=== PATIENT | female | born 1950 | race Two or more races ===

== ENCOUNTER → 2016-08-28 | Outpatient (CLI) | payer MEDICARE, OTHER ==
--- NOTE | 2016-08-29 00:08 | HKNOTE ---
DATE OF SERVICE: 08/28/2016 MAIN COMPLAINT: Pain in the right hip. HISTORY OF MAIN COMPLAINT: The patient is a 66-year-old female who complains of pain in her right h ip which has been present for about a year. She has not seen any orthopedic surgeons for this probl em. Her general practitioner, Jovani Manrique, referred her for x-rays of her hip and pelvis and diagn osed hip arthritis. The patient is referred to me by a friend and relative. 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 The left leg is shorter than the right b y about 2 cm. She wears a shoe lift on the left side. In addition to this, she has scoliosis of th e lumbar spine which also alters leg lengths. She also has a long history of pain in the lower back with radiation down her legs. She had an MRI scan of the lumbar spine. This was ordered by Dr. Jerri ferrer, and he has given her multiple lumbar epidural cortisone injections. Last epidural was given on 07/05 and has had a significant effect. She currently has no pain in her lower back or radiation d own her legs. PRESENT COMPLAINTS: The pain in the right hip is localized to the groin and radiates down the anter ior thigh to just above the knee. Pain is aggravated by walking, weightbearing and stair climbing. She does get rest pain and night pain. She takes Advil, which seems to help a great deal. The cor tisone from the epidural injection also gave her great improvement. She has no numbness or tingling in her legs. On a level surface, currently she cannot walk more than 100 feet without stopping. S he does not use a walking aid. She limps all the time. She has a 2 cm shoe lift on the left side. She cannot clip her toenails or tie her shoelaces on the right side. PAST ORTHOPEDIC HISTORY: PREVIOUS ORTHOPEDIC OPERATIONS: None. PRIOR CORTISONE INTAKE: Multiple lumbar epidural injections. ALCOHOL INTAKE: None. OTHER JOINT PROBLEMS: None. BLOOD TESTS FOR ARTHRITIS: None. PRIOR INJURIES TO HIPS OR KNEES: None. WORK STATUS: Housewife. PAST MEDICAL HISTORY: 1. Hypertension. 2. Diabetes. 3. Seizure disorder. PRIOR SURGICAL HISTORY: Breast cancer surgery for the left breast, 2002. ALLERGIES: NONE. MEDICATIONS: 1. Metformin 1000 mg twice a day. 2. Hydrochlorothiazide 25 mg a day. 3. Benicar 20 mg once a day. 4. Levetiracetam 500 mg twice a day for seizure disorder. FAMILY HISTORY: Father at 55 of diabetes. Mother age 88, alive and well. SYSTEMS REVIEW: History of breast cancer, hypertension, diabetes, otherwise negative. Polio as a c hild. HABITS: The patient does not smoke or drink alcoholic beverages. DELINQUENT TAX COLLECTOR: Dr. Jovani Manrique, [facility], [id number] [address] (phone number ). PHYSICAL EXAMINATION: GENERAL: The patient is a remarkably youthful 66-year-old female. She comes in with her , oksana buenrostro is a [place] assistant county engineer. VITAL SIGNS: Height 5 feet 5 inches. Weight 168 pounds. Blood pressure 145/80, temperature 98.0. GAIT: The patient has an antalgic gait. She walks without a walking aid. She has a shoe lift in h er left shoe. RIGHT HIP: Flexion 100 degrees, external rotation 30, internal rotation 0, abduction 30, adduction 0. There is 4+ pain in the right groin at all limits of motion. No tenderness anywhere around the hip. LEFT HIP: A full range of motion without pain. LEFT LEG: Smaller in diameter than the right leg but not significantly. Remarkably good muscle str ength in all the muscle groups of the left lower extremity. SPINE: Levoscoliosis. NEUROLOGIC: Motor examination reveals no muscle deficit in the lower extremities. Deep tendon refle xes in the lower extremities: Right knee jerk +, left knee jerk +, right ankle jerk +, left ankle j erk +. Straight leg raising is negative bilaterally at 80 degrees. Lasegue and VARGAS tests are neg ative. RIGHT KNEE: The right knee shows normal alignment. Active and passive extension is 0 degrees. Activ e and passive flexion is 135 degrees. The medial and lateral collateral ligaments and cruciate ligam ents are intact. Yanni test is negative. There is no effusion, tenderness, scarring, crepitus, or cysts. The patella tracks normally. There is no tenderness on the articular surface of the patella o r in the patellar groove. The Q angle is normal. LEFT KNEE: The left knee shows normal alignment. Active and passive extension is 0 degrees. Active and passive flexion is 135 degrees. The medial and lateral collateral ligaments and cruciate ligamen ts are intact. Yanni test is negative. There is no effusion, tenderness, scarring, crepitus, or cy sts. The patella tracks normally. There is no tenderness on the articular surface of the patella or in the patellar groove. The Q angle is normal. IMAGING: Plain x-rays of her right hip brought with her were reviewed (hard film). These show exce edingly severe degenerative osteoarthritis of the right hip with complete loss of the joint space an d a very huge osteophyte inferomedially. Intraosseous cyst and subchondral sclerosis. An MRI scan of her lumbar spine obtained on 06/18/2016 is reported by ____ as showing (see repor t): 1. "L3-L4, a 4 to 5 mm right-sided disk bulge . . . mild to moderate spinal canal stenosis and mild right foraminal stenosis. 2. L4-L5, moderate right-sided loss of disk height. A 9 mm left greater than right disk bulge with overlapping 3 mm retrolisthesis and moderate ligamentum flavum hypertrophy and facet arthropathy co ntribute to moderate left foraminal stenosis, severe spinal stenosis and mild right foraminal stenos is." (Seek full report in the chart). DIAGNOSES: 1. Exceedingly severe degenerative osteoarthritis of the right hip. 2. Polio hypoplasia of left leg. 3. 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 4. Hypertension. 5. Diabetes type 2. 6. Seizure disorder (last episode 2 years ago). 7. Breast cancer surgery, 2002. MANAGEMENT: The patient is advised that she most certainly will need to have a right hip replacemen t at some time in the near future. The surgery and some of the major possible complications were di scussed with her in a fair amount of detail. The patient was given my manual titled "Arthritis of the Hip Joint" which contains information kyara rning the various alternatives of treatment. It includes various forms of conservative treatment, in cluding the use of nonsteroidal anti-inflammatory medications and their dangers. Various surgical al ternatives are discussed. The technique of total hip replacement is discussed in detail, including p ossible complications. Included also is a section on the possible complications of blood transfusion , a section on postoperative precautions, and an exercise program to follow at home after total hip replacement. The long-term care of a total hip replacement implant is also covered in detail. The pa ashlijessica was instructed to read this manual in its entirety since it is, in and of itself, a form of in formed consent. After reading this manual, the patient will make a list of further questions that ma y not have been covered adequately. The patient was further advised that this manual, although exhau stive in nature, is only intended to supplement and complement a one-on-one discussion with me. Issues of anterior hip replacement were discussed with them in a fair amount of detail as well as pa in management, hospital course and course when she leaves the hospital. The patient will be able to go home because her is at home all day. She is going to see a imcu specialist at [facility] next week. If he feels that there is anything urgent about her spine that takes precedence over the hip surgery, then she should have the spine surgery first. FINAL DIAGNOSES: 1. Exceedingly severe degenerative osteoarthritis of the right hip. 2. Polio hypoplasia of left leg. 3. 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 4. Hypertension. 5. Diabetes type 2. 6. Seizure disorder (last episode 2 years ago). 7. Breast cancer surgery, 2002. The patient will tentatively schedule her hip surgery, which she is anxious to get on with, and will change the date if any spine surgery is indicated. Dictated By: LAVON ARAUJO/ROBERT Conf#: [id number] DID#: [id number]
== END | disposition home or self-care (01) ==
LOC: HKI 15:34
DX: M16.11 Unilateral primary osteoarthritis, right hip (principal); M21.70 Unequal limb length (acquired), unspecified site; M41.86 Other forms of scoliosis, lumbar region; I10 Essential (primary) hypertension; E11.9 Type 2 diabetes mellitus without complications; Q72.892 Other reduction defects of left lower limb; G40.909 Epilepsy, unspecified, not intractable, without status epilepticus; Z85.3 Personal history of malignant neoplasm of breast
CPT/HCPCS: G0463

== ENCOUNTER → 2016-09-12 | Outpatient (CLI) | payer MEDICARE, OTHER ==
[~2016-09-12] MED LIST: HYDR25TA6 PO; LEVE500T34 PO; METF-731 PO; OLME20TA20 PO
--- NOTE | 2016-09-12 14:39 | RADRPT ---
PROCEDURE: XR Right hip and pelvis. CLINICAL INDICATION: Right hip pain. Pelvic pain. TECHNIQUE: Two views. Frontal pelvis and lateral right hip. COMPARISON: No prior studies are available for comparison. FINDINGS: There is no fracture or dislocation. The soft tissues are normal. There are degenerative changes of the right hip with joint space narrowing, osteophytes, mild deform ity. The left hip is grossly normal. There is no lytic or blastic lesion. The upper pelvis is not completely included on the image. IMPRESSION: 1. Moderate to severe degenerative changes of the right hip. 2. Grossly normal appearance of the left hip and pelvis. RPTAT: QQ .Dusty Roberson MD, MD Date Time Electronically viewed and signed by .Dusty Roberson MD, MD on 09/12/2016 14:39 .R/
--- NOTE | 2016-09-13 08:09 | HKNOTE ---
DATE OF SERVICE: 09/12/2016 The patient comes for preoperative evaluation. She is scheduled to have a right total hip replaceme nt on 08/14/2017. She is to undergo surgery by Dr. Carlo Goncalves. She has not given any blood for a utotransfusion. She understands the risks associated with using hospital blood. She is agreeable t o using hospital blood if needed. Numerous questions by herself and her were asked and answ ered. Dictated By: LAVON ARAUJO/NTS Conf#: [id number] DID#: [id number]
== END | disposition home or self-care (01) ==
LOC: HKI 13:34
DX: Z01.818 Encounter for other preprocedural examination (principal)
CPT/HCPCS: 73502; G0463

== ENCOUNTER 2016-09-13 05:28 | Inpatient (IN) | payer MEDICARE, OTHER ==
--- NOTE | 2016-09-11 19:02 | HP ---
DATE OF ADMISSION: 09/13/[address] Son: Thank you for asking me to see Mrs. Morse in consultation. HISTORY OF PRESENT ILLNESS: She is a 66-year-old woman who is entering the hospital for total hip replacement. The patient is having lots and lots of difficulty walking. She has trouble transferring, getting in and out of cars and up and down from chairs, etc. PAST MEDICAL HISTORY: Positive for diabetes control by current blood tests is not too good. She takes Metformin 1000 mg twice a day and that is all for diabetes. She has arthritis, breast cancer history remotely and hypertension. she has a hx of seizures, none for a long time on small dose of keppra daily PAST SURGICAL HISTORY: Includes reduction of the breast with lumpectomy. SOCIAL HISTORY AND FAMILY HISTORY: The patient was born in the [facility]. She is with 2 grown children. REVIEW OF SYSTEMS: GENERAL: No headaches, no eye difficulties. Specifically, no diabetic difficulties, no trouble with her hearing. She is not short of breath, not coughing. No cardiac history and specifically no cardiac irregularity or heart attack. She has no chest pain. GASTROINTESTINAL AND GENITOURINARY: Asymptomatic. NEUROLOGIC: There is no numbness or tingling. There is no evidence of renal disease. The patient is not currently smoking. PAST SURGICAL HISTORY: Includes only the breast surgery. PHYSICAL EXAMINATION: GENERAL: Reveals a pleasant big lady in no acute distress. HEENT: No signs of trauma. Eyes appear to be normal to confrontation. Extraocular muscle movements are intact. EARS AND THROAT: Unremarkable. NECK: Supple. LUNGS: Clear to percussion and auscultation. HEART: Tones are regular, no murmurs. ABDOMEN: Soft and obese. EXTREMITIES: No clubbing, cyanosis, edema. Good peripheral pulses. NEUROLOGICAL: Unremarkable. She has pain on range of motion of left hip. IMAGING: Chest x-ray is clear. Electrocardiogram probably normal variant with a small Q in the anterior septal leads. No old records to compare. LABORATORY: Blood sugar is 188, otherwise laboratory tests are fine. IMPRESSION: 1. Preoperative status, left total hip replacement. 2. Diabetes. 3. Hypertension. 4. seizure history, remote DISCUSSION: The patient is okay to proceed with surgery. I have asked her to hold off on Glucophage prior to surgery, which may raise her blood sugar, but we can check her morning sugar and use insulin in the hospital as needed. It should not be a hindrance to surgery. I would probably use nonglucose containing fluids if her blood sugars are greater than 150. Thank you for asking me to see her at this time. Dictated By: JED COLEMAN MD SR/NTS Conf#: [id number] DID#: [id number] MTDD
[2016-09-12 09:13] VITALS: Ht 162.6 cm; Wt 75.4 kg
[2016-09-13] VITALS (26 sets, daily range): BP systolic 94–126; BP diastolic 52–88; PULSE 56–76; RESP 10–19
[~2016-09-13] VITALS: Ht 162.6 cm; Wt 75.4 kg
[2016-09-13] MEDS ORDERED: SOD CHLORIDE 0.9% IVPB ONE (06:00)
[2016-09-13] MEDS ORDERED: TRANEXAMIC ACID IVPB ONE (06:00)
[2016-09-13] MEDS ORDERED: VANCOMYCIN 1 GM (PMX) 250 ML IVPB ONE (06:00)
[2016-09-13] MEDS ORDERED: ONDANSETRON 4 MG INJ IV ONE (06:00)
[2016-09-13] MEDS ORDERED: LACTATED RINGER'S 1,000 ML IV* SCH (06:00)
[2016-09-13] MEDS ORDERED: ACETAMINOPHEN 1000MG/100ML IV 100 ML IVPB ONE (06:00)
[2016-09-13] MEDS ORDERED: oxyCODONE (CR) 10 MG TAB [oxyCONTIN] PO ONE (06:00)
[2016-09-13] MEDS ORDERED: CELECOXIB 200 MG CAP PO ONE (06:00)
[2016-09-13] MEDS ORDERED: LANSOPRAZOLE 30 MG CAP PO ONE (06:00)
[2016-09-13] MEDS ORDERED: DEXAMETHASONE 4 MG/ML 1 ML INJ IV ONE (06:00)
[2016-09-13] MEDS ORDERED: METF-731 PO (06:10)
[2016-09-13] MEDS ORDERED: HYDR25TA6 PO (06:10)
[2016-09-13] MEDS ORDERED: OLME20TA20 PO (06:10)
[2016-09-13] MEDS ORDERED: LEVE500T34 PO (06:10)
[2016-09-13] MEDS ORDERED: HETASTARCH 6% NACL 500 ML BAG ONE (07:00)
[2016-09-13] MEDS ORDERED: GELATIN SIZE 100 SPONGE ONE (07:28)
[2016-09-13] MEDS ORDERED: HEPARIN 1000 UNITS/ML 10 ML INJ ONE (07:28)
[2016-09-13] MEDS ORDERED: POLYMYXIN B 500000 UNIT INJ ONE (07:28)
[2016-09-13] MEDS ORDERED: VANCOMYCIN 1 GM INJ ONE (07:28)
[2016-09-13] MEDS ORDERED: ROPIVACAINE 0.2% 100ML BAG ONE (07:28)
[2016-09-13] MEDS ORDERED: MIDAZOLAM 1 MG/ML 2 ML INJ ONE (07:45)
[2016-09-13] MEDS ORDERED: HIP PAIN COCKTAIL VANCO INJ SCH ×7 (08:00)
[2016-09-13] MEDS ORDERED: TRANEXAMIC ACID IRR SCH ×2 (08:00)
[2016-09-13] MEDS ORDERED: SOD CHLORIDE 0.9% IRR SCH ×2 (08:00)
[2016-09-13] MEDS ORDERED: PROPOFOL 100 ML ONE (08:02)
[2016-09-13] MEDS ORDERED: ROCURONIUM 50 MG INJ ONE ×2 (08:02→09:36)
[2016-09-13] MEDS ORDERED: ROPIVACAINE 0.5 % 30 ML VIAL ONE (08:27)
[2016-09-13] MEDS ORDERED: PHENYLephrine (100 MCG/ML) 5ML SYG ONE ×4 (08:37→11:10)
[2016-09-13] MEDS ORDERED: BACITRACIN 50000 UNITS INJ IRR ONE (09:25)
[2016-09-13] MEDS ORDERED: ALBUMIN HUMAN 5% 250 ML ONE (10:22)
[2016-09-13] MEDS ORDERED: ONDANSETRON 4 MG INJ ONE (10:23)
[2016-09-13] MEDS ORDERED: METOCLOPRAMIDE 10 MG INJ ONE (10:23)
[2016-09-13] MEDS ORDERED: KETOROLAC 30 MG INJ ONE (10:23)
[2016-09-13] MEDS ORDERED: DEXAMETHASONE 4 MG/ML 1 ML INJ ONE (10:23)
[2016-09-13] MEDS ORDERED: GLYCOPYRROLATE 1 MG INJ ONE (11:31)
[2016-09-13] MEDS ORDERED: NEOSTIGMINE 3 MG/3 ML SYRINGE ONE (11:31)
--- NOTE | 2016-09-13 11:56 | RADRPT ---
PROCEDURE: Right hip x-rays series CLINICAL INDICATION: Arthroplasty TECHNIQUE: 4 images obtained intraoperatively during a hip arthroplasty procedure. COMPARISON: None available FINDINGS: 4 images were obtained intraoperatively for localization during a hip hemiarthroplasty. 24 seconds of fluoroscopy time was utilized by the physician Dr. Son during the procedure in progress. IMPRESSION: 4 images obtained and 24 seconds of fluoroscopy time used intraoperatively for localization during a hip hemiarthroplasty. .Jf Smith MD, MD Date Time Electronically viewed and signed by .Jf Smith MD, on 09/13/2016 11:55 .B/
[2016-09-13] MEDS ORDERED: oxyCODONE 5 MG TAB PO PRN ×3 (12:00)
[2016-09-13] MEDS ORDERED: NA PHOSPHATE/BIPHOS 133 ML ENEMA PR PRN (12:00)
[2016-09-13] MEDS ORDERED: BETHANECHOL 25 MG TAB PO PRN (12:00)
[2016-09-13] MEDS ORDERED: EPHEDrine SULFATE 50 MG/5 ML SYG IV PRN (12:00)
[2016-09-13] MEDS ORDERED: ZOLPIDEM 5 MG TAB PO PRN (12:00)
[2016-09-13] MEDS ORDERED: NACL 0.9% 3 ML SYG IV SCH (12:00)
[2016-09-13] MEDS ORDERED: ALBUMIN HUMAN 5% 250 ML IV PRN (12:00)
[2016-09-13] MEDS ORDERED: BISACODYL 10 MG SUPP PR PRN (12:00)
[2016-09-13] MEDS ORDERED: DOCUSATE SODIUM 100 MG CAP PO ONE (12:00)
[2016-09-13] MEDS ORDERED: MAGNESIUM HYDROXIDE 30ML CUP PO PRN (12:00)
[2016-09-13] MEDS ORDERED: NALOXONE (0.4 MG/ML) INJ IV PRN (12:00)
[2016-09-13] MEDS ORDERED: METOCLOPRAMIDE 10 MG INJ IV PRN (12:00)
[2016-09-13] MEDS ORDERED: DIPHENHYDRAMINE 50 MG INJ IV PRN (12:00)
[2016-09-13] MEDS ORDERED: DIPHENHYDRAMINE 50 MG INJ IM PRN (12:00)
[2016-09-13] MEDS ORDERED: MEPERIDINE 10 MG/ML 30 ML PCA IV PRN (12:00)
[2016-09-13] MEDS ORDERED: LABETALOL HCL 20MG INJ IV PRN (12:00)
[2016-09-13] MEDS ORDERED: ONDANSETRON 4 MG INJ IV PRN (12:00)
[2016-09-13] MEDS ORDERED: hydrALAzine 20 MG INJ IV PRN (12:00)
[2016-09-13] MEDS ORDERED: morphine (1 MG/ML) 10ML SYRINGE IV PRN ×3 (12:00)
[2016-09-13] MEDS ORDERED: ASPIRIN (EC) 325 MG TAB PO ONE (12:00)
[2016-09-13] MEDS ORDERED: HYDROmorphONE 0.2 MG/ML PCA IV PRN (12:00)
[2016-09-13] MEDS ORDERED: SENNA/DOCUSATE NA (8.6MG/50MG) TAB PO PRN (12:00)
[2016-09-13] MEDS ORDERED: HYDROmorphONE (0.2 MG/ML) 10ML SYG IV PRN ×3 (12:00)
[2016-09-13 12:32] LABS: ADD UMIC YES; URINE BILIRUBIN (Dip) NEGATIVE (NEGATIVE); URINE BLOOD (Dip) 2+ (NEGATIVE); URINE COLOR LT. YELLOW (YELLOW); URINE GLUCOSE (Dip) NEGATIVE (NEGATIVE); URINE KETONES (Dip) NEGATIVE (NEGATIVE); URINE LEUKOCYTE ESTERASE (Dip) NEGATIVE (NEGATIVE); URINE NITRITE (Dip) NEGATIVE (NEGATIVE); URINE TOTAL PROTEIN (Dip) NEGATIVE (NEGATIVE); URINE UROBILINOGEN (Dip) 0.2 E.U./dL (0.1-1.0)
[2016-09-13] MEDS: CEFAZOLIN 1 GM/50 ML (PMX) 50 ML IVPB SCH ×2 (12:38→20:34)
[2016-09-13] MEDS: ONDANSETRON 4 MG INJ IV SCH ×3 (12:39→23:37)
[2016-09-13] MEDS: ACETAMINOPHEN 1000MG/100ML IV 100 ML IVPB SCH ×2 (12:39→20:06)
[2016-09-13 12:40] LABS: BACTERIA,URINE FEW
--- NOTE | 2016-09-13 13:07 | RADRPT ---
PROCEDURE: XR Right Hip CLINICAL INDICATION: Postop surgery TECHNIQUE: A single AP view of the right hip was submitted. COMPARISON: Comparison to the intraoperative images done earlier on the same date FINDINGS: Osseous structures: A total right hip replacement appears to be well seated. The osseous elements o therwise appear intact. Joint spaces: The prosthetic joint spaces are well maintained. Soft tissues: There is subcutaneous and interarticular air and a drain has been placed along with robert perficial lucita. A Pierre catheter is evident. IMPRESSION: 1. Well seated total right hip replacement with a drain and postoperative changes evident. 2. Superficial lucita been placed laterally. Physician Nicole Date Time Electronically viewed and signed by Physician Nicole on 09/13/2016 13:07 /
[2016-09-13] MEDS: SOD CHLORIDE 0.9% 1,000 ML IV SCH ×2 (14:18→21:16)
[2016-09-13] MEDS ORDERED: BACITRACIN 50000 UNITS INJ ONE (15:00)
--- NOTE | 2016-09-13 16:27 | OPR ---
DATE OF OPERATION: 09/13/2016 PREOPERATIVE DIAGNOSIS: Severe degenerative osteoarthritis of the right hip. POSTOPERATIVE DIAGNOSIS: Severe degenerative osteoarthritis of the right hip. SURGEON: Mervin Son MD CHANNEL LAYER: Joaquim Penny. OPERATION PERFORMED: Right total hip replacement by the anterior route. Computer-assisted surgery using the Bareed[employer] digital imaging computer. FINDINGS AT SURGERY: The patient was found to have exceedingly severe degenerative osteoarthritis o f the right hip. The femoral head had no normal-appearing articular cartilage. The patient's bone quality was satisfactory for a female of her age. JUSTIFICATION FOR SURGERY: Patient has endstage osteoarthritis of the right hip. There can be no s cientific expectation that any further conservative measures would give this patient any relief from her incapacitating pain. DESCRIPTION OF PROCEDURE: The patient was given intravenous antibiotics approximately 1 hour prior to surgery. An epidural anesthetic was initiated in the preanesthesia area. The patient was then m christy to the operating room and transferred to a Hollywood table. General anesthesia was induced with int ubation and full muscle paralysis. Plain and digital x-rays were obtained of the pelvis and the ope rative hip and stored in the computer. Measurements were made on the operative hip to determine the degree of leg length and offset. The intent was to use the operative hip as the basic template for restoring the geometry of the operative hip (i.e., the opposite hip was not used as the template). On the pelvic x-ray, the correct orientation of the pelvis for surgery was determined. Note that Payoff computer was used throughout for making all leg length and angular measurements. The operative thigh, leg and lower abdomen were prepared and draped in the usual sterile fashion. A n oblique incision was made over the lateral aspect of the right thigh. Incision commenced 3 cm dis hansel and 3 cm posterior to the anterior superior iliac spine. The total length of the incision was a pproximately 80 mm long. The incision was deepened through the subcutaneous fat to expose the fasci a over the tensor muscle. The fascia was opened to expose the muscle. Bleeding points were cauteri zed throughout by diathermic coagulation. The fascia over the tensor was incised by blunt and digit al resection. The interval was found between the tensor muscle and the anterior capsule as well as the rectus muscle. Superior and inferior cobra retractors were now placed outside the capsule to ex pose the anterior surface of the capsule. A third cobra retractor was placed over the brim of the p brown. The reflected head of rectus was first elevated with a Antunez elevator. The anterior capsule was incised along the length of the intratrochanteric line with the hip externa lly rotated. The incision extended around the proximal femur to the lesser trochanter. The incisio n was now extended vertically to the edge of the acetabulum. The capsular incision was extended kimberly ng the anteromedial extent of the anterior rim of the acetabulum. A cobra retractor was placed insi de the capsule medially. The lateral aspect of the anterior capsule was incised and a second cobra retractor was placed inside the capsule around the superior femoral neck. Three turns of traction were placed on the operative leg. The femoral head was now freed from the a cetabulum using a skid. The remaining superior and anterior capsule was incised and the femoral nec k was then incised. A corkscrew was inserted into the femoral head from the anterior aspect of the femoral head. Using the corkscrew as a handle and using a skid, the hip was now completely dislocat ed. The hip was reduced. An osteotomy of the femoral neck was made at the location determined by preope rative templating. The femoral head was now removed. By suitable retraction, the acetabulum was exposed. Soft tissues around the folia removed. The marcus tabulum was enlarged and deepened to 49 mm. The last acetabular reamings were inserted under fluoro scopic control and the correct orientation of the socket and if the reaming were determined by the M.Setek computer and direct x-ray visualization. The acetabular component was now installed with an orientation of 32 degrees of abduction and 18 degrees of anteversion. The [employer] Software was used for making these measurements. The proximal femur was now exposed by hyperextending and adducting the hip joint. A retractor was p laced posterior to the femoral neck so as to retract the proximal femur laterally. A hook was then placed around the proximal femur deep to the tensor muscle and as proximal as possible. The hook wa s attached to the table anton and the femur was elevated as high as we could go without force being a pplied to the femur. The superior and proximal femoral capsules were now incised. The cobra retractor was placed behind the posterior rim of the acetabulum. A Steinmann pin was driven into the pelvis superior to the marcus tabulum to retract the soft tissues. A third cobra was placed over the rim of the acetabulum and th e fourth cobra was placed along the medial aspect of the acetabulum. This allowed further mobilizat ion of the proximal femur. A canal finder was used to find the canal. The proximal femur is now br oached starting with the smallest broach and progressively increasing until we felt we could go no f urther. At this point, the size 9 broach was left in place and the hip was reduced. X-rays were ta sydni and these x-rays showed that we could broach up 1 more size. The hip was reduced with the short est femoral head and neck assembly and measurements were made to determine what neck lengths and off set changes were still needed. The hip was dislocated. The next size broach (size 10) was now installed. This broach was found to be completely stable. The hip was reduced using the +5 mm femoral head and neck assembly and the 1 0 broach. Measurements indicated that the leg lengths had been increased by 1 mm. The offset was 2 .5 mm. This was felt to be an appropriate combination. The trial components were placed and the re tractor was placed anterior to the acetabulum and the hip was hyperextended using the Hollywood table unt il the spar touched the floor. This showed that the hip was totally stable in the anterior aspect o f the socket. As trial components were removed, the permanent plastic acetabular component was installed. This wa s followed by installing the permanent femoral component. The table was now returned to a neutral p osition and the hip was dislocated. The wound was frequently irrigated throughout the procedure wit h normal saline containing antibiotics using pulsatile lavage. The permanent femoral component was installed, it fit perfectly and appeared to be completely stable . The permanent femoral head was installed and the hip was reduced. Superficial and deep Hemovac drains were placed. Soft tissues around the hip were injected with a m ixture of Naropin, Toradol, morphine and clonidine for pain management. The deep tissues were now c losed using interrupted Vicryl. The subcutaneous tissues were closed using a Quill type stitch. Th e skin was closed using lucita. The usual sterile dressings were applied and an abduction pillow was placed between the patient's le gs before transferring her to a [facility]. The patient returned to the recovery room in stable conditi on. There were no problems or complications throughout this operation as far as is known. Although multiple x-rays were taken in the operating room and saved, the permanent x-ray record was obtained in the recovery room to be sure that the hip did not dislocate in transfer. IMPLANT COMPONENT INFORMATION: Femoral component: Corail KA10. Acetabular component: 50 mm [place] with Gription. Femoral head size: 32 mm. Femoral neck size: +5 mm. Implant retail solar advisor: [employer] [place], [place]. Leg length: Increased 1 mm. Offset: Lateralized 2.5 mm. Reinfusion of blood was approximately 400 mL and 200 mL were returned. Dictated By: MERVIN ARAUJO/ROBERT Conf#: [id number] DID#: [id number]
--- NOTE | 2016-09-13 17:16 | PN ---
Date/Time of Note Date/Time of Note DATE: 09/13/16 TIME: 17:13 Assessment/Plan VTE Prophylaxis VTE Prophylaxis Intervention: ambulation, SCD's Lines/Catheters IV Catheter Type (from Nrsg): Peripheral IV Urinary Cath still in place: Yes Subjective 24 Hr Interval Summary Free Text/Dictation doing very well post thr, already up and stable am glucose ok, will follow, all preadmit orders continued vs ok lungs clear no edema Exam/Review of Systems Vital Signs Vitals Vital Signs Date Time Temp Pulse Resp B/P Pulse Ox O2 Delivery O2 Flow Rate FiO2 09/13/16 16:00 61 18 110/72 98 Nasal Cannula 2.0 09/13/16 14:01 98.0 Results Results 24 hrs Laboratory Tests Test 09/13/16 05:55 09/13/16 12:20 Bedside Glucose 130 Urine Bacteria FEW Urine Bilirubin NEGATIVE Urine Clarity CLEAR Urine Color LT. YELLOW Urine Epithelial Cells FEW Urine Glucose NEGATIVE Urine Hemoglobin 2+ H Urine Ketones NEGATIVE Urine Leukocyte Esterase NEGATIVE Urine Microscopic RBC 5-10 Urine Microscopic WBC 2-5 Urine Nitrite NEGATIVE Urine Specific [place] 1.015 Urine Total Protein NEGATIVE Urine Urobilinogen 0.2 E.U./dL Urine pH 5.5 Medications Medications Current Medications Sodium Chloride (NS) 1,000 ml @ 80 mls/hr [id number] IV Last administered on 09/13t 14:18; Admin Dose 80 MLS/HR; Start 09/13/16 at 11:58 Hydromorphone HCl (Dilaudid VERIFIER) Q4PCA PRN IV SEVERE PAIN 8-10; Start at 12:00; Stop 09/14/16 at 09:00 Meperidine HCl (Demerol VERIFIER) Q4PCA PRN IV SEVERE PAIN 8-10; Start 09/13/16 at 12:00; Stop 09/14/16 at 09:00 Oxycodone HCl (Roxicodone) 20 mg Q3H PRN PO PAIN LEVEL 8-10; Start 09/13/16 at 12:00 Oxycodone HCl (Roxicodone) 10 mg Q3H PRN PO PAIN LEVEL 4-7; Start 09/13/16 at 12:00 Oxycodone HCl 5 mg 5 mg Q3H PRN PO PAIN LEVEL 1-3; Start 09/13/16 at 12:00 Acetaminophen (Ofirmev 1000mg/ 100ml Iv) 100 ml @ 400 mls/hr Q8H IVPB Last administered on 09/13/16 12:39; Admin Dose 400 MLS/HR; Start 09/13/16 at 12:00 ; Stop 09/15/16 at 04:14 Zolpidem Tartrate (Ambien) 5 mg HS PRN PO INSOMNIA; Start 09/13/16 at 12:00 Ondansetron HCl 4 mg 4 mg Q6H IV Last administered on 09/13/16 12:39; Admin Dose 4 MG; Start 09/13/16 at 12:00; Stop 09/14/16 at 06:01 Cefazolin Sodium (Ancef 1 Gm/50 ml (Pmx)) 50 ml @ 100 mls/hr Q8H IVPB Last administered on 09/13/16 12:38; Admin Dose 100 MLS/HR; Start 09/13/16 at 12:00 ; Stop 09/14/16 at 04:29 Aspirin (Ecotrin) 325 mg BID PO ; Start 09/14/16 at 09:00 Celecoxib (Celebrex) 200 mg BID PO ; Start 09/14/16 at 09:00 Dexamethasone (Decadron) 4 mg DAILY@07 IV ; Start 09/14/16 at 07:00; Stop at 06:59 Pantoprazole (Protonix Tab) 40 mg DAILY@06 PO ; Start 09/14/16 at 06:00 Docusate Sodium/ Ferrous Fumarate (Nicol-Sequels) 1 tab BID PO ; Start 09/14/16 at 09:00 Docusate Sodium (Colace) 200 mg BID PO ; Start 09/14/16 at 09:00; Stop 09/16/16 at 21:01 Simethicone (Mylicon) 80 mg TID PRN PO DISTENSION/GAS/BLOATING; Start 09/13/16 at 12:00 Senna/Docusate Sodium (Senokot-S) 2 tab BID PRN PO CONSTIPATION; Start at 12:00 Magnesium Hydroxide (Milk Of Mag) 30 ml HS PRN PO CONSTIPATION; Start 09/13/16 at 12:00 Bisacodyl (Dulcolax Supp) 10 mg DAILY PRN [place] CONSTIPATION; Start 09/13/16 at 12 :00 Sodium Biphosphate/ Sodium Phosphate (Fleet Enema) 133 ml DAILY PRN [place] CONSTIPATION; Start 09/13/16 at 12:00 Diphenhydramine HCl (Benadryl) 25 mg Q4H PRN IM ITCHING OR RASH; Start at 12:00 Ketorolac Tromethamine (Toradol) 30 mg DAILY@06 PRN INJ ADMINSTER BY SURGEON ONLY; Start 09/14/16 at 06:00; Stop 09/18/16 at 05:59 Bupivacaine HCl/ Epinephrine Bitart (Marcaine 0.25%/ Epi (Sdv) 30 ml) 20 ml DAILY@06 PRN INJ ADMINSTER BY SURGEON ONLY; Start 09/14/16 at 06:00; Stop 09/18 at 05:59 Naloxone HCl (Narcan) 0.2 mg Q2M PRN IV DECREASED REPIRATORY RATE; Start at 12:00 Levetiracetam (Keppra) 500 mg QHS PO ; Start 09/13/16 at 21:00 JED COLEMAN MD Sep 13, 2016 17:16
[2016-09-13] MEDS: LEVETIRACETAM 500 MG TAB PO SCH (20:34)
[2016-09-14] MEDS: ACETAMINOPHEN 1000MG/100ML IV 100 ML IVPB SCH ×3 (04:23→20:24)
[2016-09-14] MEDS: CEFAZOLIN 1 GM/50 ML (PMX) 50 ML IVPB SCH (04:48)
[2016-09-14 05:31] LABS: BASOPHILS % 0.3 % (0.0-2.0); EOSINOPHILS % 0.6 % (0.0-7.0); HEMATOCRIT 22.1 % (37.0-47.0); HEMOGLOBIN 7.4 g/dl (12.0-16.0); LYMPHOCYTES # 1.5 10^3/ul (0.8-2.9); LYMPHOCYTES % 21.1 % (15.0-51.0); MEAN CORPUSCULAR HEMOGLOBIN 28.1 pg (29.0-33.0); MEAN CORPUSCULAR HGB CONC 33.4 g/dl (32.0-37.0); MEAN CORPUSCULAR VOLUME 84.2 fl (82.0-101.0); MEAN PLATELET VOLUME 8.4 fl (7.4-10.4); MONOCYTE # 0.6 10^3/ul (0.3-0.9); MONOCYTES % 8.4 % (0.0-11.0); NEUTROPHILS % 69.6 % (39.0-77.0); PLATELET COUNT 215 10^3/UL (140-440); RED BLOOD COUNT 2.62 10^6/ul (4.20-5.40); UNCORRECTED WBC 7.1 10^3/ul (4.8-10.8); WHITE BLOOD COUNT 7.1 10^3/ul (4.8-10.8)
[2016-09-14] MEDS: ONDANSETRON 4 MG INJ IV SCH (05:46)
[2016-09-14 05:57] LABS: CONDITION 1; LH ANALYZER COMMENTS 1
[2016-09-14] MEDS ORDERED: KETOROLAC 30 MG INJ INJ PRN (06:00)
[2016-09-14] MEDS ORDERED: BUPIVACAINE 0.25%/EPI (SDV) 30 ML INJ INJ PRN (06:00)
[2016-09-14] MEDS: DEXAMETHASONE 4 MG/ML 1 ML INJ IV SCH (06:11)
[2016-09-14] MEDS: PANTOPRAZOLE (EC) 40 MG TAB PO SCH (06:12)
[2016-09-14 07:19] VITALS: BP 90/50; RESP 19
[2016-09-14] MEDS: DOCUSATE SODIUM 100 MG CAP PO SCH ×2 (09:10→20:23)
[2016-09-14] MEDS: ASPIRIN (EC) 325 MG TAB PO SCH ×2 (09:10→20:22)
[2016-09-14] MEDS: FERROUS FUMARATE (SR) TAB PO SCH ×2 (09:10→20:22)
[2016-09-14] MEDS: CELECOXIB 200 MG CAP PO SCH ×2 (09:10→20:24)
--- NOTE | 2016-09-14 12:19 | PN ---
Date/Time of Note Date/Time of Note DATE: 09/14/16 TIME: 12:15 Assessment/Plan Lines/Catheters IV Catheter Type (from Nrsg): Peripheral IV Pierre in Place (from Nrsg): Yes Assessment/Plan Assessment/Plan Stable but low H&H, POD #1 s/p right anterior LISSA -drain removed today -pain meds -pain cocktail given -ASA/SCDs for DVT prophylaxis -H&H low, will likely need transfusion -will speak with Dr. Goncalves about giving blood products. Patient is okay with receiving transfusion -OOB with PT -dressing changed -check AM labs Subjective 24 Hr Interval Summary Doing well. No acute overnight events. Denies significant pain. H&H low but asymptomatic. VSS, afebrile. Exam/Review of Systems Vital Signs Vitals Vital Signs Date Time Temp Pulse Resp B/P Pulse Ox O2 Delivery O2 Flow Rate FiO2 09/14/16 07:19 97.6 65 19 90/50 99 09/13/16 20:15 2.0 09/13/16 16:00 Nasal Cannula Intake and Output 09/13/16 09/13/16 09/14/16 15:00 23:00 07:00 Intake Total 2115.1 ml 770 ml 1190 ml Output Total 600 ml 670 ml 1520 ml Balance 1515.1 ml 100 ml -330 ml Exam Free Text/Dictation Hemovac: 240cc Dressing dry Incision clean, dry, and intact without redness or drainage 5/5 Quadriceps, Tibialis Anterior, EHL, Gastroc, Soleus, Peroneals Normal sensation Palpable DT/PT, CR <2 sec No distal edema Results Result Diagram: 09/14/16 0443 CINDY LAWS PA-C Sep 14, 2016 12:18
--- NOTE | 2016-09-14 13:31 | PN ---
Date/Time of Note Date/Time of Note DATE: 09/14/16 TIME: 13:23 Assessment/Plan VTE Prophylaxis VTE Prophylaxis Intervention: other Lines/Catheters IV Catheter Type (from [facility]): Saline Lock Urinary Cath still in place: Yes Reason Cath still needed: urinary retention Assessment/Plan Problems: (1) Seizure disorder Status: Chronic Comment: No evidence of seizure activity and she is maintained on her antiepileptic medication (2) Diabetes mellitus type 2 in nonobese Status: Chronic Comment: I will do Accu-Cheks and place her on her metformin although it looks like she is doing okay. Close follow-up (3) Essential hypertension Status: Chronic Comment: She is off of her antihypertensive medications at the moment she was on an H2 receptor uriah at half dose along with a thiazide diuretic at standard dose (4) Osteoarthritis (arthritis due to wear and tear of joints) Status: Chronic Comment: Postoperative and stable Qualifiers: Osteoarthritis location: hip Osteoarthritis type: primary Laterality: right Qualified Code: M16.11 - Primary osteoarthritis of right hip (5) Aftercare following right hip joint replacement surgery Status: Acute Comment: She is doing work with physical therapy and progressing nicely (6) Postoperative anemia due to acute blood loss Status: Acute Comment: This is occurred abruptly shown from preop hemoglobin of 12 down into the low sevens. She would prefer not to receive blood but I feel that actually this is appropriate especially given the lower blood pressures. Subjective 24 Hr Interval Summary Free Text/Dictation Vibrant and cheerful young lady sitting in bed. Constitutional: no complaints Respiratory: no complaints Cardiovascular: no complaints Gastrointestinal: nausea (Scant nausea now resolved), no complaints Genitourinary: no complaints Musculoskeletal: bone/joint pain (Pain at right hip), no complaints Skin: no complaints Neurologic: no complaints Exam/Review of Systems Vital Signs Vitals Vital Signs Date Time Temp Pulse Resp B/P Pulse Ox O2 Delivery O2 Flow Rate FiO2 09/14/16 07:19 97.6 65 19 90/50 99 09/13/16 20:15 2.0 09/13/16 16:00 Nasal Cannula Intake and Output 09/13/16 09/13/16 09/14/16 15:00 23:00 07:00 Intake Total 2115.1 ml 770 ml 1190 ml Output Total 600 ml 670 ml 1520 ml Balance 1515.1 ml 100 ml -330 ml Exam Constitutional: alert, oriented Neck: non-tender, supple Respiratory: clear to auscultation, normal air movement Cardiovascular: nl pulses, regular rate and rhythm Results Result Diagram: 09/14/16 0443 Results 24 hrs Laboratory Tests Test 09/14/16 04:43 09/14/16 08:17 Basophils # 0.0 Basophils % 0.3 Blood Morphology Comment Eosinophils # 0.0 Eosinophils % 0.6 Hematocrit 22.1 L Hemoglobin 7.4 L Lymphocytes # 1.5 Lymphocytes % 21.1 Mean Corpuscular Hemoglobin 28.1 L Mean Corpuscular Hemoglobin Concent 33.4 Mean Corpuscular Volume 84.2 Mean Platelet Volume 8.4 Monocytes # 0.6 Monocytes % 8.4 Neutrophils # 5.0 Neutrophils % 69.6 Nucleated Red Blood Cells # 0.0 Nucleated Red Blood Cells % 0.0 Platelet Count 215 Red Blood Count 2.62 L Red Cell Distribution Width 14.0 White Blood Count 7.1 Bedside Glucose 111 Medications Medications Current Medications Sodium Chloride (NS) 1,000 ml @ 80 mls/hr [id number] IV Last administered on 09/13 21:16; Admin Dose 80 MLS/HR; Start 09/13/16 at 11:58 Oxycodone HCl (Roxicodone) 20 mg Q3H PRN PO PAIN LEVEL 8-10; Start 09/13/16 at 12:00 Oxycodone HCl (Roxicodone) 10 mg Q3H PRN PO PAIN LEVEL 4-7; Start 09/13/16 at 12:00 Oxycodone HCl 5 mg 5 mg Q3H PRN PO PAIN LEVEL 1-3; Start 09/13/16 at 12:00 Acetaminophen (Ofirmev 1000mg/ 100ml Iv) 100 ml @ 400 mls/hr Q8H IVPB Last administered on 09/14/16 12:00; Admin Dose 400 MLS/HR; Start 09/13/16 at 12:00 ; Stop 09/15/16 at 04:14 Zolpidem Tartrate (Ambien) 5 mg HS PRN PO INSOMNIA; Start 09/13/16 at 12:00 Aspirin (Ecotrin) 325 mg BID PO Last administered on 09/14/16 09:10; Admin Dose 325 MG; Start 09/14/16 at 09:00 Celecoxib (Celebrex) 200 mg BID PO Last administered on 09/14/16 09:10; Admin Dose 200 MG; Start 09/14/16 at 09:00 Dexamethasone (Decadron) 4 mg DAILY@07 IV Last administered on 09/14/16 06:11 ; Admin Dose 4 MG; Start 09/14/16 at 07:00; Stop 09/17/16 at 06:59 Pantoprazole (Protonix Tab) 40 mg DAILY@06 PO Last administered on 09/14/16 06 :12; Admin Dose 40 MG; Start 09/14/16 at 06:00 Docusate Sodium/ Ferrous Fumarate (Nicol-Sequels) 1 tab BID PO Last administered on 09/14/16 09:10; Admin Dose 1 TAB; Start 09/14/16 at 09:00 Docusate Sodium (Colace) 200 mg BID PO Last administered on 09/14/16 09:10; Admin Dose 200 MG; Start 09/14/16 at 09:00; Stop 09/16/16 at 21:01 Simethicone (Mylicon) 80 mg TID PRN PO DISTENSION/GAS/BLOATING; Start 09/13/16 at 12:00 Senna/Docusate Sodium (Senokot-S) 2 tab BID PRN PO CONSTIPATION; Start at 12:00 Magnesium Hydroxide (Milk Of Mag) 30 ml HS PRN PO CONSTIPATION; Start 09/13/16 at 12:00 Bisacodyl (Dulcolax Supp) 10 mg DAILY PRN [place] CONSTIPATION; Start 09/13/16 at 12 :00 Sodium Biphosphate/ Sodium Phosphate (Fleet Enema) 133 ml DAILY PRN [place] CONSTIPATION; Start 09/13/16 at 12:00 Diphenhydramine HCl (Benadryl) 25 mg Q4H PRN IM ITCHING OR RASH; Start at 12:00 Ketorolac Tromethamine (Toradol) 30 mg DAILY@06 PRN INJ ADMINSTER BY SURGEON ONLY; Start 09/14/16 at 06:00; Stop 09/18/16 at 05:59 Bupivacaine HCl/ Epinephrine Bitart (Marcaine 0.25%/ Epi (Sdv) 30 ml) 20 ml DAILY@06 PRN INJ ADMINSTER BY SURGEON ONLY; Start 1/21/17 at 06:00; Stop 09/18 at 05:59 Naloxone HCl (Narcan) 0.2 mg Q2M PRN IV DECREASED REPIRATORY RATE; Start at 12:00 Levetiracetam (Keppra) 500 mg QHS PO Last administered on 09/13/16t 20:34; Admin Dose 500 MG; Start 09/13/16 at 21:00 LIVAN LUI MD Sep 14, 2016 13:31
[2016-09-14] MEDS ORDERED: GLUCOSE GEL 15 GRAM TUBE BUCCAL PRN (14:00)
[2016-09-14] MEDS ORDERED: GLUCAGON 1 MG INJ IM PRN (14:00)
[2016-09-14] MEDS ORDERED: GLUCOSE GEL 15 GRAM TUBE PO PRN ×2 (14:00)
[2016-09-14] MEDS ORDERED: DEXTROSE 50% 50 ML SYRINGE IV PRN ×2 (14:00)
[2016-09-14 17:21] VITALS: BP 114/69; PULSE 72; RESP 18
[2016-09-14] MEDS: SOD CHLORIDE 0.9% 1,000 ML IV SCH (19:30)
[2016-09-14 19:39] VITALS: BP 116/57; RESP 18
[2016-09-14] MEDS: metFORMIN 500 MG TAB NGT SCH (19:45)
[2016-09-14] MEDS: LEVETIRACETAM 500 MG TAB PO SCH (19:45)
[2016-09-14 20:15] VITALS: BP_SYST 116; BP_SYST 119; BP_DIAS 56; BP_DIAS 58; PULSE 75; RESP 18
[2016-09-14 21:15] VITALS: BP 116/58; PULSE 76; RESP 18
[2016-09-15] MEDS: SOD CHLORIDE 0.9% 1,000 ML IV SCH (01:28)
[2016-09-15] MEDS: ACETAMINOPHEN 1000MG/100ML IV 100 ML IVPB SCH (04:00)
[2016-09-15 05:48] LABS: BASOPHILS % 0.6 % (0.0-2.0); EOSINOPHILS # 0.2 10^3/ul (0.0-0.5); EOSINOPHILS % 3.1 % (0.0-7.0); HEMATOCRIT 24.5 % (37.0-47.0); HEMOGLOBIN 8.5 g/dl (12.0-16.0); LYMPHOCYTES # 1.5 10^3/ul (0.8-2.9); MEAN CORPUSCULAR HEMOGLOBIN 29.2 pg (29.0-33.0); MEAN CORPUSCULAR HGB CONC 34.6 g/dl (32.0-37.0); MEAN CORPUSCULAR VOLUME 84.6 fl (82.0-101.0); MEAN PLATELET VOLUME 8.5 fl (7.4-10.4); MONOCYTE # 0.5 10^3/ul (0.3-0.9); MONOCYTES % 7.9 % (0.0-11.0); NEUTROPHIL # 3.7 10^3/ul (1.6-7.5); NEUTROPHILS % 63.4 % (39.0-77.0); PLATELET COUNT 186 10^3/UL (140-440); RED CELL DISTRIBUTION WIDTH 14.3 % (11.5-14.5); UNCORRECTED WBC 5.8 10^3/ul (4.8-10.8); WHITE BLOOD COUNT 5.8 10^3/ul (4.8-10.8)
[2016-09-15 05:59] LABS: POTASSIUM 3.4 mmol/L (3.5-5.1)
[2016-09-15 06:01] LABS: CONDITION 1; CREATININE 0.7 mg/dl (0.44-1.00)
[2016-09-15 06:02] LABS: CALCIUM 8.1 mg/dl (8.4-10.2)
[2016-09-15] MEDS: PANTOPRAZOLE (EC) 40 MG TAB PO SCH (06:04)
[2016-09-15] MEDS: DEXAMETHASONE 4 MG/ML 1 ML INJ IV SCH (06:04)
[2016-09-15] MEDS ORDERED: POTASSIUM CHLORIDE (SR) 20 MEQ TAB PO STA (06:56)
--- NOTE | 2016-09-15 07:05 | PN ---
Date/Time of Note Date/Time of Note DATE: 09/15/16 TIME: 07:02 Assessment/Plan VTE Prophylaxis VTE Prophylaxis Intervention: SCD's Lines/Catheters IV [facility] Type [facility]from [facility] Saline Lock Urinary Cath still in place: Yes Reason Cath still needed: other (indicate) (Removing it now) Assessment/Plan Problems: (1) Seizure disorder Status: Chronic Comment: Quiescent times many years and well-controlled on low-dose oral therapy continue same no contraindication to discharge (2) Diabetes mellitus type 2 in nonobese Status: Chronic Comment: Well-controlled on minimal medications and diet. Doing well continue same medications no contraindication to discharge (3) Essential hypertension Status: Chronic Comment: Well-controlled on current medical regimen. Continue same no contraindication to discharge (4) Aftercare following right hip joint replacement surgery Status: Acute Comment: She is progressing quite nicely. At this time it will be up to the surgical team about discharge but I suspect that she is ready for discharge to home with home health services and PT (5) Postoperative anemia due to acute blood loss Status: Acute Comment: Corrected enough for discharge there is no contraindication discharge at this time. Please note she also had a modest hypokalemia barely I will correct that no contraindication to discharge Subjective 24 Hr Interval Summary Free Text/Dictation Extremely bright and cheerful young lady lying in bed. She reports doing well. Constitutional: no complaints Respiratory: no complaints Cardiovascular: no complaints Gastrointestinal: no complaints Genitourinary: no complaints Musculoskeletal: bone/joint pain (Well-controlled) Exam/Review of Systems Vital Signs Vitals Vital Signs Date Time Temp Pulse Resp B/P Pulse Ox O2 Delivery O2 Flow Rate FiO2 09/14/16 21:15 98.2 76 18 116/58 98 Room Air 09/13/16 20:15 2.0 Intake and Output 09/14/16 09/14/16 09/15/16 15:00 23:00 07:00 Intake Total 100 ml 1930 ml 960 ml Output Total 1000 ml Balance 100 ml 930 ml 960 ml Exam Constitutional: alert, oriented Neck: non-tender, supple Respiratory: clear to auscultation, normal air movement Cardiovascular: nl pulses, regular rate and rhythm Gastrointestinal: nl liver, spleen, non-tender, soft Extremities: normal pulses Results Result Diagram: 09/15/1642609/15/16426 Results 24 hrs Laboratory Tests Test 09/14/16 08:17 09/14/16 20:26 09/15/16 04:27 Bedside Glucose 111 149 Anion Gap 11 Basophils # 0.0 Basophils % 0.6 Blood Urea Nitrogen 13 Calcium Level 8.1 L Carbon Dioxide Level 27 Chloride Level 106 Creatinine 0.70 Eosinophils # 0.2 Eosinophils % 3.1 Glucose Level 109 Hematocrit 24.5 L Hemoglobin 8.5 L Lymphocytes # 1.5 Lymphocytes % 25.0 Mean Corpuscular Hemoglobin 29.2 Mean Corpuscular Hemoglobin Concent 34.6 Mean Corpuscular Volume 84.6 Mean Platelet Volume 8.5 Monocytes # 0.5 Monocytes % 7.9 Neutrophils # 3.7 Neutrophils % 63.4 Nucleated Red Blood Cells # 0.0 Nucleated Red Blood Cells % 0.0 Platelet Count 186 Potassium Level 3.4 L Red Blood Count 2.90 L Red Cell Distribution Width 14.3 Sodium Level 141 White Blood Count 5.8 Medications Medications Current Medications Oxycodone HCl (Roxicodone) 20 mg Q3H PRN PO PAIN LEVEL 8-10; Start 09/13/16 at 12:00 Oxycodone HCl (Roxicodone) 10 mg Q3H PRN PO PAIN LEVEL 4-7; Start 09/13/16 at 12:00 Oxycodone HCl (Roxicodone) 5 mg Q3H PRN PO PAIN LEVEL 1-3; Start 09/13/16 at 12 :00 Zolpidem Tartrate (Ambien) 5 mg HS PRN PO INSOMNIA; Start 09/13/16 at 12:00 Aspirin (Ecotrin) 325 mg BID PO Last administered on 09/14/16 20:22; Admin Dose 325 MG; Start 09/14/16 at 09:00 Celecoxib (Celebrex) 200 mg BID PO Last administered on 09/14/16 09:10; Admin Dose 200 MG; Start 09/14/16 at 09:00 Dexamethasone (Decadron) 4 mg DAILY@07 IV Last administered on 09/15/16 06:04 ; Admin Dose 4 MG; Start 09/14/16 at 07:00; Stop 09/17/16 at 06:59 Pantoprazole (Protonix Tab) 40 mg DAILY@06 PO Last administered on 09/15/16 06 :04; Admin Dose 40 MG; Start 09/14/16 at 06:00 Docusate Sodium/ Ferrous Fumarate (Nicol-Sequels) 1 tab BID PO Last administered on 09/14/16 20:22; Admin Dose 1 TAB; Start 09/14/16 at 09:00 Docusate Sodium (Colace) 200 mg BID PO Last administered on 09/14/16 20:23; Admin Dose 200 MG; Start 09/14/16 at 09:00; Stop 09/16/16 at 21:01 Simethicone (Mylicon) 80 mg TID PRN PO DISTENSION/GAS/BLOATING; Start 09/13/16 at 12:00 Senna/Docusate Sodium (Senokot-S) 2 tab BID PRN PO CONSTIPATION; Start at 12:00 Magnesium Hydroxide (Milk Of Mag) 30 ml HS PRN PO CONSTIPATION; Start 09/13/16 at 12:00 Bisacodyl (Dulcolax Supp) 10 mg DAILY PRN [place] CONSTIPATION; Start 09/13/16 at 12 :00 Sodium Biphosphate/ Sodium Phosphate (Fleet Enema) 133 ml DAILY PRN [place] CONSTIPATION; Start 09/13/16 at 12:00 Diphenhydramine HCl (Benadryl) 25 mg Q4H PRN IM ITCHING OR RASH; Start at 12:00 Ketorolac Tromethamine (Toradol) 30 mg DAILY@06 PRN INJ ADMINSTER BY SURGEON ONLY; Start 09/14/16 at 06:00; Stop 09/18/16 at 05:59 Bupivacaine HCl/ Epinephrine Bitart (Marcaine 0.25%/ Epi (Sdv) 30 ml) 20 ml DAILY@06 PRN INJ ADMINSTER BY SURGEON ONLY; Start 09/14/16 at 06:00; Stop 09/18 at 05:59 Naloxone HCl (Narcan) 0.2 mg Q2M PRN IV DECREASED REPIRATORY RATE; Start at 12:00 Levetiracetam (Keppra) 500 mg QHS PO Last administered on 09/14/16t 19:45; Admin Dose 500 MG; Start 09/13/16 at 21:00 Miscellaneous Information 1 ea NOTE XX ; Start 09/14/16 at 14:00 Glucose (Glutose) 15 gm Q15M PRN PO DECREASED GLUCOSE; Start 09/14/16 at 14:00 Glucose (Glutose) 22.5 gm Q15M PRN PO DECREASED GLUCOSE; Start 09/14/16 at 14: 00 Dextrose (D50w Syringe) 25 ml Q15M PRN IV DECREASED GLUCOSE; Start 09/14/16 at 14:00 Dextrose (D50w Syringe) 50 ml Q15M PRN IV DECREASED GLUCOSE; Start 09/14/16 at 14:00 Glucagon (Glucagen) 1 mg Q15M PRN IM DECREASED GLUCOSE; Start 09/14/16 at 14:00 Glucose (Glutose) 15 gm Q15M PRN BUCCAL DECREASED GLUCOSE; Start 09/14/16 at 14 :00 LIVAN LUI MD Sep 15, 2016 07:04
[2016-09-15 07:18] VITALS: BP 120/70; RESP 18
[2016-09-15] MEDS: CELECOXIB 200 MG CAP PO SCH ×2 (09:00→09:12)
[2016-09-15] MEDS: DOCUSATE SODIUM 100 MG CAP PO SCH (09:12)
[2016-09-15] MEDS: ASPIRIN (EC) 325 MG TAB PO SCH (09:12)
[2016-09-15] MEDS: FERROUS FUMARATE (SR) TAB PO SCH (09:12)
[2016-09-15] MEDS: metFORMIN 500 MG TAB NGT SCH (09:13)
--- NOTE | 2016-09-15 11:17 | PN ---
Date/Time of Note Date/Time of Note DATE: 09/15/16 TIME: 11:15 Assessment/Plan Lines/Catheters IV Catheter Type (from Nrsg): Saline Lock Pierre in Place (from Nrsg): Yes Assessment/Plan Assessment/Plan Stable POD #2, s/p right anterior LISSA -pain cocktail given -pain port removed -pain meds prn -OOB with PT -ASA/SCDs -dressing changed today -H&H improved, stable for d/c home today -follow up with Dr. Son in the office as scheduled Subjective 24 Hr Interval Summary Doing well. No acute overnight events. H&H improved after blood transfusion yesterday. Denies significant pain. VSS, afebrile. Exam/Review of Systems Vital Signs Vitals Vital Signs Date Time Temp Pulse Resp B/P Pulse Ox O2 Delivery O2 Flow Rate FiO2 09/15/16 07:18 97.8 71 18 120/70 99 09/14/16 21:15 Room Air 09/13/16 20:15 2.0 Intake and Output 09/14/16 09/14/16 09/15/16 15:00 23:00 07:00 Intake Total 100 ml 1930 ml 960 ml Output Total 1000 ml Balance 100 ml 930 ml 960 ml Exam Free Text/Dictation Dressing dry Incision clean, dry, and intact without redness or drainage 5/5 Quadriceps, Tibialis Anterior, EHL, Gastroc, Soleus, Peroneals Normal sensation Palpable DT/PT, CR <2 sec No distal edema Results Result Diagram: 09/15/16 0427 09/15/16 0427 CINDY LAWS PA-C Sep 15, 2016 11:17
--- NOTE | 2016-09-15 11:18 | PDOCDIS ---
Discharge Instructions DIAGNOSIS Discharge Diagnosis: s/p right anterior LISSA CONDITION Patient Condition: Good HOME CARE INSTRUCTIONS: Diet Instructions: Regular ACTIVITY: Activity Restrictions: Slowly Increase Activity Rest between Activity Avoid heavy lifting Do not operate Machinery Do not operate Power Tool Avoid Heavy Housework Keep Limb Elevated Bathing Restrictions: ShowerActivity Restrictions Comment: waterproof dressing area please FOLLOW UP/APPOINTMENTS Appointments follow up with Dr. Son in the office as previously scheduled REFERRALS Agency Name and Phone Number: [facility] [phone] (per pt. request) CINDY LAWS PA-C Sep 15, 2016 11:18
[2016-09-15] MEDS ORDERED: HYDR-902 PO (11:20)
[2016-09-15] MEDS ORDERED: ASPI325T32 PO (11:20)
--- NOTE | 2016-09-16 08:25 | DS ---
Date/Time of Note Date/Time of Note DATE: 09/16/16 TIME: 08:15 Discharge Summary Admission/Discharge Info Admit Date/Time Sep 13, 2016 at 05:28 Discharge Date/Time Sep 15, 2016 at 13:35 Final Diagnosis Status post right anterior total hip arthroplasty on 09/13/2016 Patient Condition: Stable Hx of Present Illness 66-year-old female with past medical history of hypertension, chronic right hip pain, diabetes, left breast cancer with subsequent lumpectomy, and chronic lumbar spine pain. Has complaints of chronic right hip pain for several years. Antalgic gait. Patient also has feeling that her right lower extremity is "longer" in the left. Has suffered from osteoarthritis to the right hip for several years. Denies repetitive falls. Hospital Course Admission date 09/13/2016. Status post surgery patient was doing well with controlled pain complaints. Patient was able to get out of bed independently. Assisted ambulation with walker while in hospital. Patient did have low hematocrit and hemoglobin which improved throughout course of hospital. Patient was discharged to [facility]- on 09/15/2016. Medications [place] 10/325 mg every 4-6 hours as needed for severe pain Restoril 15 mg nightly Celebrex 100 mg twice daily for pain Gabapentin 100 mg twice daily Aspirin 325 mg twice daily Temperature 97.8 White blood cell count 5.8 Hemoglobin 8.5 Home Meds Active Scripts Hydrocodone/Acetaminophen ([place] 10-325 Tablet) 1 Each Tablet, 1 EACH PO Q6, # 60 TAB Prov:CINDY LAWS PA-C 09/15/16 Aspirin (Aspir-Hermila) 325 Mg Tablet., 325 MG PO BID for 42 Days, #84 Prov:CINDY LAWS PA-C 09/15/16 Reported Medications Olmesartan Medoxomil (Benicar) 20 Mg Tablet, 20 MG PO DAILY, #30 TAB 09/13/16 Hydrochlorothiazide (Hydrochlorothiazide) 25 Mg Tablet, 25 MG PO DAILY, #30 TAB 09/13/16 Levetiracetam* (Keppra XR*) 500 Mg Tab.sr.24h, 500 MG PO DAILY, TAB 09/13/16 Metformin HCl (Metformin HCl ER) 1,000 Mg [id number], 1000 MG PO BID, TAB 09/13/16 Follow-up Plan Close monitoring by having home health Pain medications as needed Stacie removed in 10 days status post surgery at home health At Home PT encouraged DVT prophylaxis with aspirin 325 mg twice daily Weightbearing as tolerated. (Patient may use assisted ambulatory device, such as front wheeled walker as needed) Follow-up 3 week [address] clinic with Dr. Son/Felicitas Chavez PA-C Discharge instructions given to patient. Anterior hip precautions given. Patient made aware, should she experience any complications or problems after discharge, present to office sooner or if severe, present to emergency room. Pending Labs Laboratory Tests Test 09/15/16 12:39 Bedside Glucose 110mg/dL (70-220) FELICITAS CHAVEZ PA-C Sep 16, 2016 08:25
== END 2016-09-15 13:35 | disposition home health service (06) | DRG 470 ==
LOC: REC 05:28 → MS1 13:24
PROC: 0SR904A Replacement of Right Hip Joint with Ceramic on Polyethylene Synthetic Substitute, Uncemented, Open Approach (ICD-10-PCS; principal; 2016-09-13 08:00)
PROC: 30233N1 Transfusion of Nonautologous Red Blood Cells into Peripheral Vein, Percutaneous Approach (ICD-10-PCS; 2016-09-14)
DX: M16.11 Unilateral primary osteoarthritis, right hip (principal); I10 Essential (primary) hypertension; D62 Acute posthemorrhagic anemia; M25.551 Pain in right hip; E11.9 Type 2 diabetes mellitus without complications; G40.909 Epilepsy, unspecified, not intractable, without status epilepticus; Z79.82 Long term (current) use of aspirin; Z79.4 Long term (current) use of insulin; Z85.3 Personal history of malignant neoplasm of breast
CPT/HCPCS: 36430; 73500; 73530; 80048; 81001; 81003; 82962; 85025; 86850; 86900; 86901; 86920; 87081; 88304; 88311; 97110; 97116; 97162; 97530; C1776; J0131; J0171; J0690; J0735; J1100; J1644; J1885; J2250; J2274; J2370; J2405; J2710; J2765; J2795; J3370; J7030; J7120; P9016; P9045

== ENCOUNTER → 2016-10-08 | Outpatient (CLI) | payer MEDICARE, OTHER ==
[~2016-10-08] MED LIST changes: +ASPI325T32 PO; +HYDR-902 PO
--- NOTE | 2016-10-08 17:52 | HKNOTE ---
DATE OF SERVICE: 10/08/2016 SUBJECTIVE: A 66-year-old female who presents today for postoperative visit status post right total hip replacement performed on 09/13/2016. Since the surgery, patient denies any pain to the right hip. The patient states that she gets occasional minimal aching/pain that she rates at 0.5/10 on the pain scale that occurs with sleeping. The patient states that Flasher is a bit too strong and she has been taking extra strength Tylenol as needed for pain which has been effective, continues taking aspirin 325 mg twice a day for DVT. The patient states that she has been walking okay with a walker. She does experience dizziness at times, but has a history of anemia and states that the dizziness is preexisting. Currently taking iron supplements for iron deficiency anemia. Denies any calf pain, chest pain or shortness of breath. Patient is very pleased status post surgery as she states that surgery has been a success. OBJECTIVE: VITAL SIGNS: Blood pressure is 153/73, temperature is 97.4 degrees, pulse is 91 , respiratory rate is 12, height is 5 feet 4 inches, weight is 166 pounds. GENERAL: The patient is alert, oriented, and in no acute distress. MUSCULOSKELETAL: Gait is abnormal but not antalgic. Assisted ambulation using a walker. The patient is seated comfortably with hip flexed at 90 degrees. Normal sensory examination to light touch throughout the right lower extremity. No calf pain/negative Homans sign, slight limp is seen with ambulation. ASSESSMENT AND PLAN: 1. The patient continues to do well status post surgery. 2. Continue Tylenol as needed for pain complaints. 3. Continue aspirin 325 mg b.i.d. for DVT prophylaxis. 4. The patient will follow up in another 3 weeks, which will be 6 weeks postop , for repeat evaluation and x-rays. 5. Continue Celebrex. 6. Gabapentin as instructed. 7. The patient made aware that she may follow up earlier should she have any complications. 8. The patient presents with lab results today and lab results were reviewed with the patient and patient's today. Hemoglobin was at 9.4, but currently being monitored by PCP in regards to her anemia. Doing well status post surgery. Seen with Dr. Rodney today. Dictated By: FELICITAS KU for LAVON RODNEY MD, KP/ROBERT Conf#: [id number] [facility]#: [id number] MTDD
== END | disposition home or self-care (01) ==
LOC: HKI 14:53
DX: Z47.1 Aftercare following joint replacement surgery (principal); Z96.641 Presence of right artificial hip joint; Z79.82 Long term (current) use of aspirin

== ENCOUNTER → 2016-10-29 | Outpatient (CLI) | payer MEDICARE, OTHER ==
--- NOTE | 2016-10-29 16:02 | PN ---
Date/Time of Note Date/Time of Note DATE: 10/29/16 TIME: 15:53 Outpatient Progress Note Chief Complaint 6 weeks status post right total hip replacement via anterior route on 09/13/2016 HPI 66-year-old female 6 weeks postop right total hip replacement via anterior route (09/13/2016) presents today for repeat evaluation. Patient denies any pain complaints to the right hip. Patient is walking okay. Patient has been without walker for the past week with no complaints. Denies any falls. Denies any calf pain, chest pain or shortness of breath. Patient is very pleased status post surgery. Continues taking aspirin for DVT prophylaxis. Continues using pain medications as needed although, patient states that she has had little need for pain medication due to minimal pain complaints. Review of Systems Const: No Fever, no chills, no Fatigue, normal appetite, no diaphoresis. Physical Exam General Appearance: well-developed, well-nourished, in no acute distress. Right hip: Patient showing slight limp with gait. Walking independently without assisted ambulatory device. While lying supine patient is able to extend to 0. Active flexion up to 120. 0-45 with abduction. 0-15 with adduction. 5/5 strength on resistance with flexion, extension, abduction and adduction. Normal sensory examination to light touch throughout the right lower extremity. No calf pain/negative Homans sign. Surgical wound is well- healed with well-healed scarring. Imaging studies: X-ray of the right hip performed on 10/29/2016 showing all components appearing well aligned, attached and integrated to the bone. No signs of any lucency between metal and bone. Allergies Coded Allergies: No Known Allergy (Unverified , 09/13/16) Assessment/Plan * Prescription for outpatient physical therapy in hopes to improve gait as well as continue increase strengthening and functionality of the right hip status post surgery provided for patient today. * Patient may discontinue hip precautions at this time. * Patient may discontinue DVT prophylaxis at this time * Antibiotic card provided today * Follow-up 4.5 months for repeat evaluation. Antibiotic card provided for patient. Patient made aware that dental prophylaxis will be necessary prior to any dental procedure for the remainder of their lifetime. Patient is aware that they must contact their dentist prior to any procedure to inform them of previous joint replacement with prosthesis implant so appropriate antibiotic may be prescribed to lower risk of joint infection status post surgery. Card will also serve as confirmation should patient be traveling and have to go through security such as at an airport. Patient was also seen with Dr. Son who agrees with plan. Medications Home Meds Active Scripts Hydrocodone/Acetaminophen ([place] 10-325 Tablet) 1 Each Tablet, 1 EACH PO Q6, # 60 TAB Prov:CINDY LAWS PA-C 09/15/16 Aspirin (Aspir-Hermila) 325 Mg Tablet., 325 MG PO BID for 42 Days, #84 Prov:CINDY LAWS PA-C 09/15/16 Reported Medications Olmesartan Medoxomil (Benicar) 20 Mg Tablet, 20 MG PO DAILY, #30 TAB 09/13/16 Hydrochlorothiazide (Hydrochlorothiazide) 25 Mg Tablet, 25 MG PO DAILY, #30 TAB 09/13/16 Levetiracetam* (Keppra XR*) 500 Mg Tab.sr.24h, 500 MG PO DAILY, TAB 09/13/16 Metformin HCl (Metformin HCl ER) 1,000 Mg [id number], 1000 MG PO BID, TAB 09/13/16 FELICITAS DONG PA-C Oct 29, 2016 16:01
--- NOTE | 2016-10-29 17:38 | RADRPT ---
PROCEDURE: XR pelvis/right hip. CLINICAL INDICATION: Hip pain TECHNIQUE: AP pelvis/lateral view of the right hip available for review. COMPARISON: 09/12/2016 and 09/13/2016 FINDINGS: There is a right total hip replacement. There is no evidence of loosening of the prosthesis. There i s normal mineralization, architecture and alignment. No fractures are identified. No osseous lesio ns are present. The left hip joint is unremarkable. The SI joints are unremarkable. The soft tiss ues are unremarkable. IMPRESSION: Right total hip replacement Otherwise an unremarkable examination RPTAT: HGDB .Jf Smith MD, Date Time Electronically viewed and signed by .Jf Smith MD, on 10/29/2016 17:37 .B/
== END | disposition home or self-care (01) ==
LOC: HKI 14:35
DX: Z47.1 Aftercare following joint replacement surgery (principal); Z96.641 Presence of right artificial hip joint
CPT/HCPCS: 73502

== ENCOUNTER → 2017-03-13 | Outpatient (CLI) | payer MEDICARE, OTHER ==
--- NOTE | 2017-03-13 14:21 | PN ---
Date/Time of Note Date/Time of Note DATE: 03/13/17 TIME: 14:16 Outpatient Progress Note Chief Complaint 6 months status post right total hip replacement HPI 66-year-old female presents today for 6 month follow-up status post right total hip replacement on 09/13/2016. Patient denies any pain to the right hip. Patient is return to normal functionality of the right hip and has no complaints. Patient did notice about 1-2 months after the surgery, she began developing shooting pain beginning to the mid right buttock region down the posterior leg stopping at the knee. She denies any radiating symptoms during the day but when she is ready to go to sleep at night she feels radiating symptoms. Symptoms improve with elevating the leg. Symptoms also significantly improved with massage therapy. She denies any falls or injury. She denies any previous radicular symptoms down the right lower extremity but does confirm a past history of low back pain. Denies any chest pain/tightness, shortness of breath. Denies any calf pain. Review of Systems Const: No Fever, no chills, no Fatigue, normal appetite, no diaphoresis. Resp: No SOB, no wheezing, no chest pain. CV: No chest pain, no palpitaions, no OLIVAREZ. Physical Exam Blood pressure is 144/76, temperature is 98.5, pulse is 85, respiratory rate is 14, height is 5 foot 4 inches, weight is 166 pounds General Appearance: well-developed, well-nourished, in no acute distress. Right hip: Normal range of motion with flexion and extension of the right hip. No pain with internal and external rotation. Gait is normal and nonantalgic. Denies any radicular symptoms or sensory abnormalities during exam today. Imaging X-ray of the right hip performed on 03/13/2017 showing all components appearing well aligned, attached and integrated to the bone. No signs of any lucency between metal and bone. Allergies Coded Allergies: No Known Allergy (Unverified , 09/13/16) Assessment/Plan * Patient confirms that she has dental prophylaxis card. * Radicular symptoms are similar to that of sciatica. Patient does have pre- existing low back pain but has new onset of radicular symptoms in the lower extremities. Continue with supportive measures but, if radicular symptoms continue it was recommended that patient undergo imaging such as x-ray to the lumbar spine as well as MRI to the lumbar spine and possible referral to vocational rehabilitation specialist. Patient respectfully declines referral or further testing at this time as she states that symptoms are mild. Instructions on evaluation for sciatic symptoms were discussed today however. * Patient is return to normal functionality status post right total hip arthroplasty and is very pleased status post surgery. * Follow-up as needed Antibiotic card provided for patient. Patient made aware that dental prophylaxis will be necessary prior to any dental procedure for the remainder of their lifetime. Patient is aware that they must contact their dentist prior to any procedure to inform them of previous joint replacement with prosthesis implant so appropriate antibiotic may be prescribed to lower risk of joint infection status post surgery. Card will also serve as confirmation should patient be traveling and have to go through security such as at an airport. Dr. Son was present for examination today and agrees with plan. Medications Home Meds Active Scripts Hydrocodone/Acetaminophen ([place] 10-325 Tablet) 1 Each Tablet, 1 EACH PO Q6, # 60 TAB Prov:CINDY LAWS PA-C 09/15/16 Aspirin (Aspir-Hermila) 325 Mg Tablet., 325 MG PO BID for 42 Days, #84 Prov:CINDY LAWS PA-C 09/15/16 Reported Medications Olmesartan Medoxomil (Benicar) 20 Mg Tablet, 20 MG PO DAILY, #30 TAB 09/13/16 Hydrochlorothiazide (Hydrochlorothiazide) 25 Mg Tablet, 25 MG PO DAILY, #30 TAB 09/13/16 Levetiracetam* (Keppra XR*) 500 Mg Tab.sr.24h, 500 MG PO DAILY, TAB 09/13/16 Metformin HCl (Metformin HCl ER) 1,000 Mg [id number], 1000 MG PO BID, TAB 09/13/16 FELICITAS DONG PA-C Mar 13, 2017 14:21
--- NOTE | 2017-03-13 14:59 | RADRPT ---
PROCEDURE: XR Right hip and pelvis. CLINICAL INDICATION: Right hip pain. Pelvic pain. Postop. TECHNIQUE: Two views. Frontal pelvis and lateral right hip. COMPARISON: 10/29/2016. FINDINGS: There is no fracture or dislocation. The soft tissues are normal. There is a right hip total arthroplasty which appears satisfactory. The left hip is normal. There is no lytic or blastic lesion. The upper pelvis is not completely included on the image. IMPRESSION: 1. Satisfactory postoperative appearance of the right hip. 2. Grossly normal appearance of the left hip. RPTAT: QQ .Dusty Roberson MD, MD Date Time Electronically viewed and signed by .Dusty Roberson MD, MD on 03/13/2017 14:59 .R/
== END | disposition home or self-care (01) ==
LOC: HKI 13:45
DX: Z47.1 Aftercare following joint replacement surgery (principal); Z96.641 Presence of right artificial hip joint
CPT/HCPCS: 73502; G0463